=== PATIENT | male | born 1965 | race Caucasian/White ===

== ENCOUNTER 2022-02-05 11:55 | Outpatient (CLI) | payer BC, SELFPAY ==
--- NOTE | ~2022-02-05 | CT_ITS ---
EXAMINATION: CT abdomen pelvis wo con DATE: 02/05/2022 12:42 INDICATION: Ventral hernia without obstruction or gangrene TECHNIQUE: Computed tomography (CT) of the abdomen and pelvis was performed without intravenous contr ast. Automated exposure control and iterative reconstruction technique were employed. The dose-length product was 529.61 mGy-cm. COMPARISON: None FINDINGS: Lung bases are clear. Heart size is normal. No pericardial or pleural effusion. Small sliding-type hi atal hernia. Liver, gallbladder, spleen, pancreas, bilateral adrenal glands and right kidney are norm al. There are three <3 mm nonobstructing left renal stones. No hydronephrosis or ureteral stones. The re is moderate colonic diverticulosis with a sigmoid predominance. There is no adjacent inflammatory change to suggest diverticulitis. Small bowel and appendix are normal. Small fat-containing umbilica l hernia. Small fat-containing supra umbilical ventral hernia. Moderate-sized fat-containing right in guinal hernia. Bladder is normal. Aside likely measuring 4.7 x 3.1 cm. No free intraperitoneal gas or fluid. No pathologically enlarged abdominal or pelvic lymphadenopathy. Mild to moderate lumbar and l ower thoracic spondylosis. Numerous Schmorl's nodes throughout the lumbar and lower thoracic spine al jerry with chronic mild anterior wedging at T11-L3. Mild bilateral sacroiliac osteoarthritis. IMPRESSION: 1. Small sliding-type hiatal hernia. 2. Nonobstructing left nephrolithiasis. 3. Small fat-containing umbilical and supraumbilical ventral hernias. 4. Moderate-sized fat-containing right inguinal hernia. 5. Diverticulosis. 6. Prostatomegaly. Reviewed, dictated and finalized at location A. ICE CLASSIFICATION CLERK
== END 2022-02-05 11:56 | disposition home or self-care (01) ==
LOC: ANHIMG 11:59
PROVIDERS: Visit Provider Surgery
DX: K43.9 Ventral hernia without obstruction or gangrene (principal); K44.9 Diaphragmatic hernia without obstruction or gangrene; N20.0 Calculus of kidney; K42.9 Umbilical hernia without obstruction or gangrene; K40.90 Unilateral inguinal hernia, without obstruction or gangrene, not specified as recurrent; K57.30 Diverticulosis of large intestine without perforation or abscess without bleeding; N40.0 Benign prostatic hyperplasia without lower urinary tract symptoms
CPT/HCPCS: 74176

== ENCOUNTER 2022-04-02 11:04 | Outpatient (CLI) | payer BC, SELFPAY ==
--- NOTE | 2022-04-02 11:25 | ECG_ITS ---
Measurements Intervals [place] Rate: 60 P: 29 CA: 167 QRS: 71 QRSD: 109 T: 35 QT: 413 QTc: 413 Interpretive Statements SINUS RHYTHM MINIMAL Q WAVES- ANTEROLAT/INF LEADS BORDERLINE ECG Electronically Signed On 04-02-2022 12:39:25 CDT by Erik Mayfield D.O.
[2022-04-02 11:32] LABS: Basophils Absolute Auto 0.1 K/mm3 (0.0-0.1); Basophils Percent Auto 1.1 % (0.2-1.2); Eosinophils Absolute Auto 0.1 K/mm3 (0-0.3); Eosinophils Percent Auto 1.9 % (0-4.4); Hematocrit 44.9 % (42.0-52.0); Hemoglobin 15.1 g/dL (14.0-18.0); Immature Granulocyte Absolute 0.03 K/mm3 (0.00-0.031); Immature Granulocyte Percent A 0.5 % (0-0.5); Lymphocytes Percent Auto 24.8 % (18.3-44.2); Mean Corpuscular HGB Conc 33.6 g/dl (32-36); Mean Corpuscular Hemoglobin 29.5 pg (26-34); Mean Corpuscular Volume 87.7 fl (80-100); Mean Platelet Volume 10.1 fl (7.4-10.4); Monocytes Absolute Auto 0.6 K/mm3 (0.1-0.6); Monocytes Percent Auto 9.6 % (2.6-8.5); Neutrophils Percent Auto 62.1 % (45.5-73.1); Platelet Count Result 164 k/mm3 (150-375); Red Blood Count 5.12 M/mm3 (4.6-6.20); Red Cell Distribution Width 12.9 % (11.5-14.5); White Blood Count 6.5 K/mm3 (4.5-10.0)
[2022-04-02 11:45] LABS: Anion Gap 8 mmol/L (8-16); Blood Urea Nitrogen 19 mg/dL (9-20); Calcium 9.6 mg/dL (8.4-10.2); Carbon Dioxide 28 mmol/L (22-30); Chloride 105 mmol/L (98-107); Estimated Glomerular Filt Rate > 60; Glucose 79 mg/dL (65-110); Potassium 4.4 mmol/L (3.4-5.0); Sodium 141 mmol/L (137-145)
== END 2022-04-02 11:05 | disposition home or self-care (01) ==
PROVIDERS: Visit Provider Surgery
DX: K43.9 Ventral hernia without obstruction or gangrene (principal)
CPT/HCPCS: 36415; 80048; 85025; 86850; 86900; 86901; 93005

== ENCOUNTER 2022-04-07 16:11 | Observation (INO) | payer BC, SELFPAY ==
--- NOTE | 2022-04-01 10:55 | PC.NURSE ---
Report to the Outpatient Waiting Room, entrance under the green pavilion located off [facility], at time 0600 on date __04/06/22 . OR Time: __729 . - You and your visitor will be asked a series of questions to screen for COVID 19 for your protection. - Only one visitor is allowed at this time. - The patient visitor is requested to leave or wait in car when not with patient. - A mask is required within the hospital. Patients may have clear liquids (water, carbonated beverages, clear teas, apple juice) until 3 hours prior to surgery with a maximum of 20 ounces. - No food from midnight until time of surgery - Infants may have breast milk until 4 hours before surgery, infant formula 6 hours prior to surgery. - Children will be allowed to drink immediately following surgery. If applicable, please bring a bottle or sippy cup to assist with drinking. Juice, water, soda, and popsicles are readily available. For infants on formula, please bring formula the day of surgery. Pacifiers are allowed. Take the following medications with a SIP of water the morning of surgery: __NONE Medications to discontinue per physician ___ALLL VITAMINS AND SUPPLEMENTS 3 DAYS PRE OP Date to take last dose__04/02/22 Please no make-up, nail spanish, hairspray, perfume, deodorant, or body powder the day of surgery. No jewelry (including any body piercings) or valuables the day of surgery, leave them at home. Please take a shower or bath the night before, or the morning of, surgery with an antibacterial soap. Wear comfortable, loose fitting clothing. Children are encouraged to wear pajamas. - Jewelry must be removed prior to entering the operating room. Rings and piercings that are not removed may be cut off. - The hospital will not accept responsibility for valuables. - Please leave all valuables, including medications, at home the day of surgery. HIBICLENS SHOWER MORNING OF SURGERY If you are going home after surgery, a licensed cdl b driver must drive you home. - NO public transportation without another adult. - We recommend that an adult stay with you for 24 hours following discharge. - We also recommend that you do not drive, make important decision, drink alcoholic beverages, or take any drugs that were not prescribed by your health care provider for at least 24 hours after your discharge time. Follow any additional instructions given to you from your surgeon. If you or anyone in your household have experienced Covid symptoms in the past week, please notify your surgeon or the nurse liaison at the phone number below for possible testing. Telephone instructions given to _PATIENT and asked if any additional questions and then verbalized understanding. Patient advised to call surgeon office or pre surgery nurse liaison [phone] if any additional questions.
[2022-04-01 11:01] VITALS: BMI 28.3
--- NOTE | 2022-04-05 13:20 | P.PNAN_ITS ---
Anes - Initial Pre Proc Eval Procedure: Operation Date: 04/06/22 07:30 Proposed Procedures p Laparoscopic Repair Recurrent Ventral Hernia with Mesh, - Melecio Jackson MD s Open Repair Right Inguinal Hernia with Mesh - Melecio Jackson MD Date/Time: 04/05/22 13:20 Surgeon: Melecio Jackson MD Pre Op Diagnosis: recurrent ventral hernia, right inguinal hernia Patient Data Age: 56 Gender: M Height: 1.75 m Weight: 87.1 kg Allergies Allergy/AdvReac Type Severity Reaction Status Date / Time No Known Allergies Allergy Verified 04/06/22 06:08 Home Medications Medication Instructions Recorded Confirmed Type ascorbate calcium (vitamin C) 500 500 mg PO DAILY 01/25/22 04/06/22 History mg tablet multivitamin 1 tablet PO DAILY 01/25/22 04/06/22 History sour melo extract 1,000 mg 1,000 mg PO DAILY 01/31/22 04/06/22 History capsule turmeric 400 mg capsule 400 mg PO DAILY 01/31/22 04/06/22 History cholecalciferol (vitamin D3) 50 mcg PO DAILY 04/01/22 04/06/22 History Patient hx anesthesia problems: none Family hx anesthesia problems: none Results Review: All pre-operative results and documents have been reviewed as part of the pre-operative evaluation. [facility] Past Medical History Medical History GERD (gastroesophageal reflux disease) Gout Surgical History Surgical History H/O hernia repair VENTRAL HERNIA REPAIR 2012 [facility] Family History Family History Mother History of knee replacement, total Son Depression Asthma Other Cerebrovascular accident Diabetes mellitus Family history of cardiovascular disease Hypertension Social History Social History Smoking status: Never smoker Alcohol intake: current Alcohol use details: Rare Substance use: never Substance use type: does not use Living arrangements: with family 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 Informed Consent: The patient's anesthetic plan and its attendant risks and benefits were discussed with the patient/family/POA. Questions were solicited and answers provided to the satisfaction of the patient/family/POA.
--- NOTE | 2022-04-05 14:55 | PM.IMHP ---
H&P: HPI History of Present Illness Date/Time: 04/05/22 14:55 Chief Complaint: recurrent ventral hernia, right inguinal hernia Narrative: patient is a 56-year-old man who in March of 2013 underwent laparoscopic repair of umbilical and supraumbilical ventral hernias with [facility]. The last couple of years he has noticed a bulge in the supraumbilical area as well as the right groin. He was seen in the office and found to have a recurrent ventral hernia as well as a right inguinal hernia on exam. CT scan of the abdomen and pelvis showed recurrent umbilical and ventral hernias as well as the right inguinal hernia. After thorough discussion, the patient is taken to surgery now for laparoscopic repair of recurrent ventral and umbilical hernias as well as open repair of right inguinal hernia. Review of Systems Review of Systems: All systems reviewed & are unremarkable except as noted in HPI and below Constitutional: Constitutional: Denies chills and Denies fever(s) Cardiovascular: Cardiovascular: Denies chest pain, Denies diaphoresis, Denies dyspnea and Denies paroxysmal nocturnal dyspnea Respiratory: Respiratory: Denies chest congestion, Denies cough and Denies dyspnea Integumentary/Breasts: Skin/Breast: Denies lesions and Denies rash PMFSH Past Medical History Medical History GERD (gastroesophageal reflux disease) Gout Surgical History Surgical History H/O hernia repair VENTRAL HERNIA REPAIR 2012 [facility] Family History Family History Mother History of knee replacement, total Son Depression Asthma Other Cerebrovascular accident Diabetes mellitus Family history of cardiovascular disease Hypertension Social History Social History Smoking status: Never smoker Alcohol intake: current Alcohol use details: Rare Substance use: never Substance use type: does not use 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 Spiritual care concerns: No Meds Home Medications and Allergies Home Medications Medication Instructions Recorded Confirmed Type ascorbate calcium (vitamin C) 500 500 mg PO DAILY 01/25/22 04/01/22 History mg tablet multivitamin 1 tablet PO DAILY 01/25/22 04/01/22 History sour melo extract 1,000 mg 1,000 mg PO DAILY 01/31/22 04/01/22 History capsule turmeric 400 mg capsule 400 mg PO DAILY 01/31/22 04/01/22 History cholecalciferol (vitamin D3) 50 mcg PO DAILY 04/01/22 04/01/22 History Allergies Allergy/AdvReac Type Severity Reaction Status Date / Time No Known Allergies Allergy Verified 04/01/22 10:43 Exam Const: General: comfortable, no acute distress, alert and awake HENMT: Head: normocephalic and atraumatic Mouth: Yes Normal oral and palatal mucosa present Eyes: Conjunctivae: conjunctivae normal Pupils: Equal, round and reactive pupils present EOM: EOMs intact bilaterally Neck: Neck: normal visual inspection, no lymphadenopathy and nontender Resp: Effort & Inspection: normal respiratory effort Auscultation: clear to auscultation bilaterally Cardio: Rate: regular rate Rhythm: regular rhythm Heart sounds: no gallops, no murmurs and no rubs GI: Inspection: non-distended and visible herniation ( Above umbilicus) GI Palp: Yes Soft to palpation, No Tenderness to palpation present (GI), No Hepatomegaly present, No Splenomegaly present and Yes Hernia present ( palpable supraumbilical ventral hernia.) Auscultation: normal bowel sounds : Male General Exam: Yes hernia ( Large reducible right inguinal hernia, no left inguinal hernia) Penis: Yes normal penis Scrotum: scrotum normal Testes: Testes normal Skin: Lesions: no lesions Rashes: no rashes Neuro: General: no focal motor deficits and CN's II-XI intact carlos alberto
[2022-04-06] VITALS (18 sets, daily range): BP systolic 94–122; BP diastolic 55–83; PULSE 53–89; RESP 12–18; TEMP 36.3–37; O2SAT 92–99; BMI 27.6
[2022-04-06] MEDS: LACTATED RINGERS 1,000 ML 30 ML IV CONT ×2 (06:37→10:33)
[2022-04-06] MEDS: ACETAMINOPHEN 500 MG TABLET 1000 MG PO (06:38)
[2022-04-06] MEDS: KETOROLAC 15 MG/ML VIAL (*BKC) IV PUSH (06:38)
--- NOTE | 2022-04-06 07:10 | WPDHPUPDATE1 ---
History and Physical Update Update Date/Time: 04/06/22 07:10 History and Physical has been reviewed, including an updated exam of the patient. There are NO changes in the patient's condition. Risks, benefits, and alternatives have been discussed and questions answered. Patient agrees to proceed with procedure.
[2022-04-06] MEDS: ceFAZolin 2 GM/D5W 50 ML 2 GM/50 ML BAG IVPB (07:30)
[2022-04-06] MEDS: LIDO 1%/EPINEPHRINE 1:100,000 50 ML VIAL 22 ML INFILTRATE (09:09)
--- NOTE | 2022-04-06 09:27 | SUR.OPER ---
[facility] [id number], EXP 2023-07-24 OPTIFIX AT [id number] EXP 2023-10-24 OPTIFIX AT [id number] EXP 2023-07-24
--- NOTE | 2022-04-06 09:44 | SUR.OPER ---
LOCAL LIDOCAINE 1% WITH EPI/ 30ML ABDOMEN PORT SITES, 20ML RIGHT INGUINAL HERNIA
--- NOTE | 2022-04-06 09:56 | SUR.OPER ---
PERFIX LIGHT PLUT LARGE LOT [id number], EXP 2026-08-24 RIGHT INGUINAL
--- NOTE | 2022-04-06 10:50 | W.PM.PROC2 ---
Procedure Note - Detailed Date of Procedure 04/06/22 Pre-op Diagnosis recurrent ventral hernia, right inguinal hernia Post-op Diagnosis Same Procedure Performed Laparoscopic repair recurrent ventral hernias with Ventralight ST mesh, removal of old abdominal wall mesh, right inguinal hernia repair with large PerFix plug and patch. Surgeon Melecio Jackson MD Special Events Director Azul BRIZUELAA, Alcira Harper APPLIANCE COUNSELOR Anesthesia General and Local (1% lidocaine with epinephrine) Indications Patient is a 56-year-old man who in 2012 had an umbilical and ventral hernia repair laparoscopically with mesh. He developed a bulge at the area of the previous repair. He has also noticed a right inguinal bulge. He was seen in the office and by CT scan as well as exam, he has a reducible right inguinal hernia as well as a recurrent ventral and umbilical hernia. He is taken to surgery now for laparoscopic repair of recurrent ventral hernia as well as open repair of right inguinal hernia. Findings Patient had supraumbilical and umbilical hernia recurrence. It appeared the mass she had contracted on the left side and recurrence occurred at the lateral aspect of the old mesh. He had a direct right inguinal hernia. Description of Procedure Patient was taken to surgery and induced into general anesthesia. Licea catheter was placed. The abdomen, both groins and genitalia were prepped and draped. We started with the laparoscopic repair of recurrent ventral hernias. An applied Medical optical 5 mm port was placed in the lateral left subcostal position. With intraperitoneal location secured, we insufflated the abdomen. An apical or epigastric left subcostal 5 mm port was then placed under direct visualization. A 10 11 port was then placed in the left lower quadrant. There were quite a few omental adhesions to the previously placed Physiomesh. These were taken down with a combination of blunt and sharp dissection. Cautery was used for hemostasis. There was omentum chronically incarcerated in the 2 hernia defects and this was reduced as well. We eventually freed all the mesh adhesion and any other anterior abdominal wall adhesions without difficulty. I then went to the left apical aspect of the mesh and was able to gently free it from the anterior abdominal wall. This was done primarily sharply. There was little if any bleeding. Some 0 Ethibond sutures were encountered and these were all removed when encountered. The mesh was then cut into 2 pieces. It was placed in an Endo-Catch bag. It was retrieved through the 10 11 left lower quadrant trocar site. I then reviewed the anterior abdominal wall. I measured the cephalad caudad as well as lateral dimensions of the 2 hernias. From a lateral aspect the greatest dimension was 3 cm. From a cephalad caudad direction, we needed to cover an area of 5 cm. A 15 x 20 cm piece of Ventralight ST mesh was chosen. It was brought into the field. I marked the areas on the anterior abdominal wall were the various hernias were located. This was done using a 22 gauge needle in piercing the abdominal wall then marking the area of each piercing to generally outline the location of the hernias. I then placed the hernia mesh over the hernias so that all would be covered symmetrically and with at least 5 cm overlap in all directions. I then jessica an outline of the mesh on the anterior abdominal wall. I reinspected and found the mesh positioning to be satisfactory. I then marked where the 4 transfascial sutures would be placed. I used 0 Marquand-Gibson suture and placed transfascial sutures in the mesh in the craniocaudad and right and left lateral midline positions of the mesh. The mesh was then rolled and introduced into the abdominal cavity. It was unrolled and turned over so that the adherent side of the mesh would be against the anterior abdominal wall. I then used the InVivioLink suture pass device and made small incisions over each of the transfascial sutur
--- NOTE | 2022-04-06 11:03 | SUR.PHASEI ---
Simple mask removed at 1103.
[2022-04-06] MEDS: ONDANSETRON INJ 4 MG/2 ML VIAL IV PUSH (11:25)
[2022-04-06] MEDS: fentaNYL CITRATE INJ (*CRX) 100 MCG/2 ML VIAL 25 MCG IV PUSH ×8 (11:28→11:59)
[2022-04-06] MEDS: diphenhydrAMINE HCl INJ 50 MG/ML VIAL 12.5 MG IV PUSH ×2 (12:14→12:20)
--- NOTE | 2022-04-06 12:40 | ADMGEN ---
This patient, Vinh Sauer, was admitted to Medical Room 259-01. Patient/family oriented to hospital policies and general routines including ID bracelet, bed and alarms, visiting hours, pain management, procedures, bathroom and other care routines, personal items, smoking policy, room service/diet, and visiting hours. Information on how to activate the Rapid Response Team has been discussed. Patient/Family are encouraged to report perceived risks to care and to ask questions if they do not understand what they are told or what they should do.
[2022-04-06] MEDS: LACTATED RINGERS 1,000 ML 100 ML IV CONT (13:03)
[2022-04-06] MEDS: IBUPROFEN IV 800 MG/200 ML 800 MG/200 ML BAG 400 MG IVPB ×3 (13:03→23:56)
[2022-04-06] MEDS: HYDROcodone/acetaminophen (*CRX) 10-325 MG TABLET 1 TAB PO (16:23)
[2022-04-06] MEDS: SENNA/DOCUSATE SODIUM TABLET 2 TAB PO (20:18)
[2022-04-06] MEDS: HYDROcodone/acetaminophen (*CRX) 5-325 MG TABLET 1 TAB PO (20:18)
[2022-04-07] MEDS: HYDROcodone/acetaminophen (*CRX) 10-325 MG TABLET 1 TAB PO ×3 (04:23→20:15)
[2022-04-07 05:59] LABS: Hematocrit 33.9 % (42.0-52.0); Hemoglobin 11.4 g/dL (14.0-18.0); Mean Corpuscular HGB Conc 33.6 g/dl (32-36); Mean Corpuscular Hemoglobin 29.7 pg (26-34); Mean Corpuscular Volume 88.3 fl (80-100); Mean Platelet Volume 10.4 fl (7.4-10.4); Platelet Count Result 118 k/mm3 (150-375); Red Blood Count 3.84 M/mm3 (4.6-6.20); Red Cell Distribution Width 13.1 % (11.5-14.5); White Blood Count 6.9 K/mm3 (4.5-10.0)
[2022-04-07 06:00] VITALS: BP 100/61; PULSE 63; RESP 18; TEMP 36.3; O2SAT 96
[2022-04-07] MEDS: IBUPROFEN IV 800 MG/200 ML 800 MG/200 ML BAG 400 MG IVPB (06:02)
[2022-04-07 06:11] LABS: Anion Gap 4 mmol/L (8-16); Blood Urea Nitrogen 18 mg/dL (9-20); Calcium 7.3 mg/dL (8.4-10.2); Carbon Dioxide 29 mmol/L (22-30); Chloride 104 mmol/L (98-107); Estimated CRCL calculation 67 ml/min; Estimated Glomerular Filt Rate > 60; Glucose 96 mg/dL (65-110); Potassium 3.7 mmol/L (3.4-5.0); Sodium 137 mmol/L (137-145)
[2022-04-07] MEDS: ENOXAPARIN 40 MG/0.4 ML SYRINGE SUB-Q (07:57)
[2022-04-07] MEDS: polyethylene glycoL 3350 17 GM POWD.PACK PO (07:57)
--- NOTE | 2022-04-07 10:26 | WPDANESPN ---
Anes - Prog Note Post-Op Date/Time: 04/07/22 10:26 Cardiovascular status: normal Respiratory status: normal Airway patency: baseline Mental status: baseline Post-Op hydration status: normal Vital Signs: Last Vital Signs Temp 36.3 C L 04/07/22 06:00 Pulse 63 04/07/22 06:00 Resp 18 04/07/22 06:00 BP 100/61 04/07/22 06:00 Pulse Ox 96 04/07/22 06:00 Pain Score (VAS): 12/06 I/O: Intake & Output 04/06/22 04/07/22 04/07/22 23:59 07:59 15:59 Intake Total 1360 900 300 Balance 1360 900 300 Laboratory Tests 04/07/22 05:39 04/07/22 05:39 04/07/22 04/07/22 05:39 05:39 WBC 6.9 RBC 3.84 L Hgb 11.4 L D Hct 33.9 L MCV 88.3 MCH 29.7 MCHC 33.6 RDW 13.1 Plt Count 118 L MPV 10.4 Sodium 137 Potassium 3.7 Chloride 104 Carbon Dioxide 29 Anion Gap 4 L BUN 18 Creatinine 1.10 Estim Creat Clear Calc 67 Estimated GFR > 60 Glucose 96 Calcium 7.3 L Post-procedural complaints: none Patient Feedback: Patient satisfied with anesthetic care.
[2022-04-07] MEDS: IBUPROFEN IV 800 MG/200 ML 800 MG/200 ML BAG 200 MG IVPB ×2 (13:00→18:15)
[2022-04-07 14:00] VITALS: BP 104/60; PULSE 63; RESP 18; TEMP 36.7; O2SAT 94
--- NOTE | 2022-04-07 14:27 | PCCCNOTE ---
On 04/07/22, the student, [Rosy Travis ], provided care and completed [facility] documentation on this patient. I have reviewed the student's documentation and agree with the findings.
--- NOTE | 2022-04-07 15:49 | PM.PNGS ---
Progress Note: A&P Assessment and Plan (1) Recurrent ventral hernia: Code(s): K43.2 - Incisional hernia without obstruction or gangrene Status: Chronic Assessment and Plan: Patient doing fair post-op day 1. His pain was poorly controlled this morning, but seems to be improving some through the day. Continue scheduled IV Ibuprofen and PRN analgesics. Will work on increasing activity and try walking the halls. (2) Inguinal hernia without obstruction or gangrene: Qualifiers: Laterality: unilateral Recurrence: non-recurrent Qualified Code(s): K40.90 - Unilateral inguinal hernia, without obstruction or gangrene, not specified as recurrent Code(s): K40.90 - Unilateral inguinal hernia, without obstruction or gangrene, not specified as recurrent Status: Chronic Additional Plan I have discussed the patient's case and plan of care with Dr. Jackson. Subjective Subjective Date/Time Seen: 04/07/22 13:49 Post Op day: 1 Patient reports: still having pain, tolerating a regular diet, voiding w/o difficulty and no flatus Interval history: Patient seen and examined. He is reporting incisional pain with movement and coughing, but feels it has been tolerable with the analgesics. No nausea or vomiting. Review of Systems Review of Systems: All systems reviewed & are unremarkable except as noted in HPI and below Constitutional: Constitutional: Reports as per HPI, Reports no additional constitutional complaints, Denies chills and Denies fever(s) Cardiovascular: Cardiovascular: Reports no additional cardiovascular complaints, Denies chest pain, Denies leg edema and Denies dyspnea Respiratory: Respiratory: Reports no additional respiratory complaints, Denies cough and Denies dyspnea Gastrointestinal: Gastrointestinal: Reports as per HPI and Reports no additional gastrointestinal complaints Neurologic: Reports system reviewed and no additional complaints, except as documented, Denies Abnormal speech present and Denies focal weakness Exam Const: General: comfortable, no acute distress, alert and awake Orientation/consciousness: patient oriented x3 Resp: Effort & Inspection: normal respiratory effort Auscultation: clear to auscultation bilaterally Cardio: Rate: regular rate Rhythm: regular rhythm GI: Inspection: non-distended and incision (Abdominal incisions dry and intact.) GI Palp: Yes Soft to palpation and Yes Tenderness to palpation present (GI) (diffusely) Auscultation: normal bowel sounds Skin: General skin exam: normal color Neuro: General: moves all extremities and no focal motor deficits Speech: No Abnormal speech present Extrem: General: no clubbing, cyanosis or edema and no calf tenderness Psych: Mental Status: mental status grossly normal Insight: Good insight present (Psych) Judgement: Good judgement present (Psych) Objective Data Vital Signs Vital Signs: Vital Signs - 24 hr 04/06/22 20:00 04/06/22 22:00 04/07/22 06:00 Temperature 98.6 F 97.4 F L Pulse Rate 66 60 63 Respiratory Rate 14 16 18 Blood Pressure 106/55 L 100/61 Pulse Oximetry 99 94 96 04/07/22 14:00 Temperature 98.1 F Pulse Rate 63 Respiratory Rate 18 Blood Pressure 104/60 Pulse Oximetry 94 Intake/Output Intake/Output: Intake & Output 04/04/22 04/05/22 04/06/22 04/07/22 23:59 23:59 23:59 23:59 Intake Total 2310 1700 Balance 2310 1700 Meds/Results Medications: Active Medications Generic Name Dose Route Start Last Admin Trade Name Freq PRN Reason Stop Dose Admin Acetaminophen 500 mg 04/06/22 12:30 Acetaminophen 500 Mg Tablet PO Q6H PRN Mild Pain (1-3) or Fever Hydrocodone Bitart/Acetaminophen 1 tab 04/07/22 12:06 Hydrocodone/Acetaminophen (*Crx) 5-325 Mg Tablet PO Q4H PRN Pain Rated 4-6 Hydrocodone Bitart/Acetaminophen 1 tab 04/07/22 12:06 Hydrocodone/Acetaminophen (*Crx) 10-325 Mg Tablet PO Q6H PRN Pain Rated 7-10 Diphenhydramine
[2022-04-07 20:00] VITALS: PULSE 63; RESP 18; O2SAT 94
[2022-04-07] MEDS: SENNA/DOCUSATE SODIUM TABLET 2 TAB PO (20:13)
[2022-04-07 22:00] VITALS: BP 108/63; PULSE 69; RESP 16; TEMP 36.8; O2SAT 93
[2022-04-08] MEDS: IBUPROFEN IV 800 MG/200 ML 800 MG/200 ML BAG 400 MG IVPB ×2 (00:03→06:04)
[2022-04-08 05:29] LABS: Hematocrit 35.6 % (42.0-52.0); Hemoglobin 11.7 g/dL (14.0-18.0); Mean Corpuscular HGB Conc 32.9 g/dl (32-36); Mean Corpuscular Hemoglobin 29.5 pg (26-34); Mean Corpuscular Volume 89.7 fl (80-100); Mean Platelet Volume 10.3 fl (7.4-10.4); Platelet Count Result 112 k/mm3 (150-375); Red Blood Count 3.97 M/mm3 (4.6-6.20); Red Cell Distribution Width 12.8 % (11.5-14.5); White Blood Count 6.5 K/mm3 (4.5-10.0)
[2022-04-08 05:52] LABS: Anion Gap 5 mmol/L (8-16); Blood Urea Nitrogen 15 mg/dL (9-20); Calcium 7.7 mg/dL (8.4-10.2); Carbon Dioxide 26 mmol/L (22-30); Chloride 106 mmol/L (98-107); Estimated CRCL calculation 67 ml/min; Estimated Glomerular Filt Rate > 60; Glucose 84 mg/dL (65-110); Potassium 3.8 mmol/L (3.4-5.0); Sodium 137 mmol/L (137-145)
[2022-04-08 06:00] VITALS: BP 113/63; PULSE 68; RESP 18; TEMP 36.4; O2SAT 96
[2022-04-08] MEDS: ENOXAPARIN 40 MG/0.4 ML SYRINGE SUB-Q (08:03)
[2022-04-08 08:05] VITALS: O2SAT 94
[2022-04-08] MEDS: polyethylene glycoL 3350 17 GM POWD.PACK PO (08:05)
[2022-04-08] MEDS: HYDROcodone/acetaminophen (*CRX) 5-325 MG TABLET 1 TAB PO ×2 (09:30→15:50)
--- NOTE | 2022-04-08 12:17 | PM.PNGS ---
Progress Note: A&P Assessment and Plan (1) Recurrent ventral hernia: Code(s): K43.2 - Incisional hernia without obstruction or gangrene Status: Chronic Assessment and Plan: Patient is still very tender and frequently uncomfortable. Having trouble sleeping due to pain. I encouraged him to take the pain medication more frequently and if necessary, take IV pain medication. I also offered a sleeping pill again today. He prefers not to have 1. Will increase his ambulation. Advance to regular diet. Possibly home tomorrow if postop pain is improved. (2) Inguinal hernia without obstruction or gangrene: Qualifiers: Laterality: unilateral Recurrence: non-recurrent Qualified Code(s): K40.90 - Unilateral inguinal hernia, without obstruction or gangrene, not specified as recurrent Code(s): K40.90 - Unilateral inguinal hernia, without obstruction or gangrene, not specified as recurrent Status: Chronic Assessment and Plan: Healing as expected, not particularly uncomfortable. Could go home as far as the inguinal hernia repair is concerned. Subjective Subjective Date/Time Seen: 04/08/22 12:17 Post Op day: 2 Patient reports: still having pain ( reluctant to take pain medication, also reports trouble sleeping.), tolerating liquids well, bowel movement and afebrile Review of Systems Review of Systems: All systems reviewed & are unremarkable except as noted in HPI and below Constitutional: Constitutional: Denies chills, Reports difficulty sleeping, Denies fever(s) and Denies headache(s) Cardiovascular: Cardiovascular: Denies chest pain and Denies dyspnea Respiratory: Respiratory: Denies cough and Denies dyspnea Gastrointestinal: Gastrointestinal: Reports as per HPI, Reports abdominal pain, Denies bloating, Denies heartburn and Denies diarrhea Exam Const: General: comfortable and no acute distress; No confusion Orientation/consciousness: patient oriented x3 and No confusion GI: Inspection: incision ( All incisions healing well, mild right inguinal swelling) GI Palp: Yes Soft to palpation, Yes Tenderness to palpation present (GI) ( still very tender at ventral hernia repair site.) and Yes Guarding due to palpation present (GI) Auscultation: Hypoactive bowel sounds present Neuro: General: patient oriented x3, no focal motor deficits and No confusion Extrem: General: no calf tenderness and no edema Psych: Affect: normal affect Insight: Good insight present (Psych) Judgement: Good judgement present (Psych) Objective Data Vital Signs Vital Signs: Vital Signs - 24 hr 04/07/22 14:00 04/07/22 20:00 04/07/22 22:00 Temperature 36.7 C 36.8 C Pulse Rate 63 63 69 Respiratory Rate 18 18 16 Blood Pressure 104/60 108/63 Pulse Oximetry 94 94 93 04/08/22 06:00 04/08/22 08:05 Temperature 36.4 C Pulse Rate 68 Respiratory Rate 18 Blood Pressure 113/63 Pulse Oximetry 96 94 Intake/Output Intake/Output: Intake & Output 04/05/22 04/06/22 04/07/22 04/08/22 23:59 23:59 23:59 23:59 Intake Total 2310 2490 800 Output Total 900 Balance 2310 2490 -100 Meds/Results Medications: Active Medications Generic Name Dose Route Start Last Admin Trade Name Freq PRN Reason Stop Dose Admin Acetaminophen 500 mg 04/06/22 12:30 Acetaminophen 500 Mg Tablet PO Q6H PRN Mild Pain (1-3) or Fever Hydrocodone Bitart/Acetaminophen 1 tab 04/07/22 12:06 04/08/22 09:30 Hydrocodone/Acetaminophen (*Crx) 5-325 Mg Tablet PO 1 tab Q4H PRN Administration Pain Rated 4-6 Hydrocodone Bitart/Acetaminophen 1 tab 04/07/22 12:06 04/07/22 20:15 Hydrocodone/Acetaminophen (*Crx) 10-325 Mg Tablet PO 1 tab Q6H PRN Administration Pain Rated 7-10 Diphenhydramine HCl 25 mg 04/06/22 12:30 Diphenhydramine Hcl Inj 50 Mg/Ml Vial IV PUSH Q6H PRN Itching Enoxaparin Sodium 40 mg 04/07/22 09:00 04/08/22 08:03 Enoxaparin 40 Mg/0.4 Ml Syringe
[2022-04-08 15:15] VITALS: BP 126/66; PULSE 72; RESP 16; TEMP 36.5; O2SAT 96
[2022-04-08] MEDS: SENNA/DOCUSATE SODIUM TABLET 2 TAB PO (20:02)
[2022-04-08] MEDS: HYDROcodone/acetaminophen (*CRX) 10-325 MG TABLET 1 TAB PO (20:02)
[2022-04-08 22:00] VITALS: BP 116/62; PULSE 74; RESP 16; TEMP 36.4; O2SAT 93
[2022-04-09] MEDS: HYDROcodone/acetaminophen (*CRX) 10-325 MG TABLET 1 TAB PO ×3 (01:42→13:46)
[2022-04-09 06:00] VITALS: BP 124/67; PULSE 61; RESP 16; TEMP 36.3; O2SAT 94
[2022-04-09 07:01] LABS: Hematocrit 37.8 % (42.0-52.0); Hemoglobin 12.5 g/dL (14.0-18.0); Immature Platelet Fraction Pct 3.3 % (0.9-11.2); Mean Corpuscular HGB Conc 33.1 g/dl (32-36); Mean Corpuscular Hemoglobin 29.6 pg (26-34); Mean Corpuscular Volume 89.4 fl (80-100); Mean Platelet Volume 10.5 fl (7.4-10.4); Platelet Count Result 136 k/mm3 (150-375); Red Blood Count 4.23 M/mm3 (4.6-6.20); Red Cell Distribution Width 12.7 % (11.5-14.5); White Blood Count 5.5 K/mm3 (4.5-10.0)
[2022-04-09 07:02] LABS: Anion Gap 5 mmol/L (8-16); Blood Urea Nitrogen 12 mg/dL (9-20); Calcium 8.1 mg/dL (8.4-10.2); Carbon Dioxide 28 mmol/L (22-30); Chloride 105 mmol/L (98-107); Estimated CRCL calculation 80 ml/min; Estimated Glomerular Filt Rate > 60; Glucose 92 mg/dL (65-110); Potassium 3.9 mmol/L (3.4-5.0); Sodium 138 mmol/L (137-145)
[2022-04-09] MEDS: polyethylene glycoL 3350 17 GM POWD.PACK PO (09:19)
[2022-04-09] MEDS: ENOXAPARIN 40 MG/0.4 ML SYRINGE SUB-Q (09:19)
--- NOTE | 2022-04-09 12:54 | PM.DS ---
DS: Admitting Diagnosis Discharge Date 04/09/2022 Admitting Diagnosis Recurrent ventral and umbilical hernias Right inguinal hernia DS: Discharge Diagnosis Discharge Diagnosis (1) Recurrent ventral hernia: Code(s): K43.2 - Incisional hernia without obstruction or gangrene Status: Chronic (2) Inguinal hernia without obstruction or gangrene: Qualifiers: Laterality: unilateral Recurrence: non-recurrent Qualified Code(s): K40.90 - Unilateral inguinal hernia, without obstruction or gangrene, not specified as recurrent Code(s): K40.90 - Unilateral inguinal hernia, without obstruction or gangrene, not specified as recurrent Status: Chronic DS: Summary Hospital Course Hospital Course: Patient is a 56-year-old man who nearly 10 years ago had a laparoscopic repair of umbilical and ventral hernias. He developed not only a recurrence of both of these hernias but also a right inguinal hernia. He had a CT scan prior to surgery which demonstrated all 3 hernias. After discussion in the office he was taken to surgery on 04/06/2022. He underwent laparoscopic repair of the supraumbilical and umbilical hernias. This involved taking down adhesions as well as removing the previously placed mesh. He also had open right inguinal hernia repair. This was a direct right inguinal hernia. Following surgery, he had the expected significant amount of postoperative abdominal pain from the recurrent mesh hernia repair. This was controlled with analgesics both intravenous and oral. By 04/09/2022, he was much more comfortable. He was able to ambulate independently and was quite stable. Oral analgesics were satisfactory for pain control. He was urinating without difficulty and eating well. He was able to be discharged in good condition on postop day 3. 04/09/2022. Status at Discharge Functional status at discharge: independent ambulation Overall status at discharge: patient is progressing back to baseline Time Spent with Patient Time attestation: Total time spent providing and/or coordinating discharge services: Time spent: Less than 30 minutes Exam GI: Inspection: non-distended, incision (Abdominal and right inguinal incisions all healing well) and no visible herniation GI Palp: Yes Soft to palpation, Yes Tenderness to palpation present (GI) and No Hernia present Auscultation: normal bowel sounds DS: Data Data Completed and Pending Completed studies during hospitalization: Pending at discharge 04/06/22 09:11 Surgical [PTH] Routine Labs on day of discharge: Labs from last 24 hours 04/09/22 04/09/22 06:08 06:08 WBC 5.5 RBC 4.23 L Hgb 12.5 L Hct 37.8 L MCV 89.4 MCH 29.6 MCHC 33.1 RDW 12.7 Plt Count 136 L MPV 10.5 H % Immature Plt Fraction 3.3 Sodium 138 Potassium 3.9 Chloride 105 Carbon Dioxide 28 Anion Gap 5 L BUN 12 Creatinine 0.90 Estim Creat Clear Calc 80 Estimated GFR > 60 Glucose 92 Calcium 8.1 L Discharge Plan Discharge Attending physician on discharge: Melecio Jackson Discharging Clinician: Melecio Jackson Anticipated Discharge Date/Time: 04/09/22 12:58 Patient Disposition: Home, Self-Care Activity: may shower and no straining Diet: regular Wound Care Instructions: incision open to air Discharge Instructions: Ambulate 3-4 x per day and as tolerated. No lifting over 15-20lbs. May bathe or shower. Stairs are OK. May drive a car in 3 days. Patient Instructions: Antibiotic Form Stand Alone Forms: General Discharge Information Follow-up/Referrals: Melecio Jackson MD [Physician] - 2 Weeks Discharge Medications: New hydrocodone-acetaminophen 5-325 mg tablet 1 - 2 tablet PO Q6H PRN (Reason: pain) Qty: 12 RF: 0 polyethylene glycol 3350 [Miralax] 17 gram Powder In Packet 17 g PO QAM Qty: 15 RF: 0 sennosides-docusate sodium [Senokot-S] 8.6-50 mg Tablet 2 tab-cap PO HS Qty:
== END 2022-04-09 14:15 | disposition home or self-care (01) ==
LOC: ANHSURGERY 16:13 → ANH2MED 16:13
PROVIDERS: Admitting Provider Surgery; Visit Provider Surgery
PROC: (CPT 49505; principal; 2022-04-06 07:30)
PROC: (CPT 49505; 2022-04-06 07:30)
DX: K43.2 Incisional hernia without obstruction or gangrene (principal); K42.9 Umbilical hernia without obstruction or gangrene; K40.90 Unilateral inguinal hernia, without obstruction or gangrene, not specified as recurrent; K21.9 Gastro-esophageal reflux disease without esophagitis; M10.9 Gout, unspecified
CPT/HCPCS: 49505; 49656; 36415; 80048; 85027; 85055; 86850; 86900; 86901; 88302; A9270; C1781; G0378; J0690; J1100; J1170; J1200; J1650; J1741; J1885; J2250; J2370; J2405; J2704; J2710; J3010; J7120